=== PATIENT | female | born 1940 | race Caucasian/White ===

== ENCOUNTER 2021-11-12 14:36 | Inpatient (IN) | payer OTHER ==
[~2021-11-12] VITALS: Ht 170.2 cm; Wt 62.2 kg
[2021-11-12 15:55] LABS: BASOPHIL 0.1 % (0-2); EOSINOPHIL 1.3 % (0-7); HCT 32.5 % (37.0-47.0); LYMPHOCYTE 13.8 % (15-48); MCH 31.1 pg (25.0-31.0); MCHC 33.8 g/dL (32.0-36.0); MCV 91.8 fL (78.0-100.0); MONOCYTE 6.5 % (0-12); MPV 11.1 fL (6.0-9.5); NEUTROPHIL 77.9 % (41-80); NRBC 0; PLT 169 K/uL (150-400); RBC 3.54 M/uL (4.20-5.40); RDW 12.9 % (11.5-14.0); WBC 6.8 K/uL (4.0-10.5)
[2021-11-12 16:08] LABS: INR 1.1 (0.9-1.2); PROTHROMBIN TIME 13.6 SECONDS (11.8-13.4); PTT 27.5 SECONDS (24.4-34.7)
[2021-11-12 16:17] LABS: ALBUMIN 3.7 g/dL (3.4-5.0); BILIRUBIN - TOTAL 0.4 mg/dL (0.2-1.0); BUN/CREAT RATIO (CALC) 23.3 RATIO; CREATININE 1.2 mg/dL (0.51-0.95); GLOBULIN (CALCULATION) 2.7 g/dL; POTASSIUM 3.2 mmol/L (3.5-5.1); TOTAL PROTEIN 6.4 g/dL (6.4-8.2)
[2021-11-12 16:30] LABS: BILIRUBIN NEGATIVE (NEGATIVE); BLOOD TRACE-LYSED Ery/uL (NEGATIVE); CLARITY CLEAR (CLEAR); COLOR YELLOW (YELLOW); GLUCOSE (U) NORMAL (NORMAL); LEUKOCYTES NEGATIVE Leu/uL (NEGATIVE); NITRITE NEGATIVE (NEGATIVE); PROTEIN NEGATIVE (NEGATIVE); SPECIFIC GRAVITY <=1.005 (1.001-1.030); UROBILINOGEN 0.2 mg/dL (0.2-1.0)
[2021-11-12 16:40] LABS: URINARY RBC RARE
[2021-11-13 06:45] LABS: BASOPHIL 0.2 % (0-2); EOSINOPHIL 0.2 % (0-7); HCT 30.5 % (37.0-47.0); HGB 9.8 g/dl (12.5-16.0); LYMPHOCYTE 6.5 % (15-48); MCH 31.1 pg (25.0-31.0); MCHC 32.1 g/dL (32.0-36.0); MCV 96.8 fL (78.0-100.0); MPV 10.2 fL (6.0-9.5); NEUTROPHIL 84.6 % (41-80); NRBC 0; PLT 119 K/uL (150-400); RBC 3.15 M/uL (4.20-5.40); RDW 13.2 % (11.5-14.0)
[2021-11-13 06:57] LABS: BUN/CREAT RATIO (CALC) 19.2 RATIO; CREATININE 0.99 mg/dL (0.51-0.95); MAGNESIUM 1.9 mg/dL (1.8-2.4); POTASSIUM 4.5 mmol/L (3.5-5.1)
[2021-11-13] MEDS ORDERED: NORVASC5 MG PO (09:21)
[2021-11-13] MEDS ORDERED: ZOLOFT 25MG TAB25 MG PO (09:21)
[2021-11-13] MEDS ORDERED: MOBIC7.5 MG PO (09:22)
[2021-11-13] MEDS ORDERED: ZOCOR40 MG PO (09:23)
[2021-11-13] MEDS ORDERED: LASIX20 MG PO (09:23)
[2021-11-13] MEDS ORDERED: SINGULAIR10 MG PO (09:23)
[2021-11-13] MEDS ORDERED: XANAX0.5 MG PO (09:24)
[2021-11-14 06:46] LABS: BASOPHIL 0.1 % (0-2); EOSINOPHIL 0 % (0-7); HCT 19.4 % (37.0-47.0); LYMPHOCYTE 4.9 % (15-48); MCH 31.7 pg (25.0-31.0); NEUTROPHIL 88.6 % (41-80); NRBC 0; PLT 116 K/uL (150-400); RBC 2.02 M/uL (4.20-5.40); RDW 13.6 % (11.5-14.0); WBC 8.1 K/uL (4.0-10.5)
[2021-11-14 06:50] LABS: HGB 6.4 g/dl (12.5-16.0)
[2021-11-14 07:05] LABS: BUN/CREAT RATIO (CALC) 18.3 RATIO; CREATININE 1.15 mg/dL (0.51-0.95); POTASSIUM 4.1 mmol/L (3.5-5.1)
--- NOTE | 2021-11-14 21:47 | NUR ---
PT CONFUSED, HALLUCINATING, SPEAKING TO PEOPLE THAT ARENT IN THE ROOM. YELLING OUT FOR HELP. PT STATES IS IN A BASEMENT AND WE ARE NOT ALLOWING HER TO LEAVE REFUSES TO TAKE MEDICATIONS. STATES THIS NURSE IS HURTING HER. THIS NURSE ATTEMPTED TO REORIENT PT, PT INCREASINGLY RESTLESS AND AGITATED. PT CALLED NEIGHBOR ON PERSONAL CELL PHONE STATIING "HELP ME, THEY HAVE ME TRAPPED IN A BASEMENT, CALL 911". PT SON CALLED, SON STATES WILL COME SIT WITH PATIENT. SHELF FILLER NOTIFIED, ORDERS PLACED
[2021-11-15 07:41] LABS: BASOPHIL 0.2 % (0-2); EOSINOPHIL 0.1 % (0-7); HCT 27.1 % (37.0-47.0); LYMPHOCYTE 4.3 % (15-48); MCH 29.6 pg (25.0-31.0); MCHC 33.9 g/dL (32.0-36.0); MPV 10.3 fL (6.0-9.5); NEUTROPHIL 87.1 % (41-80); NRBC 0; PLT 127 K/uL (150-400); RBC 3.11 M/uL (4.20-5.40); RDW 18.1 % (11.5-14.0); WBC 9.8 K/uL (4.0-10.5)
[2021-11-15 07:47] LABS: HGB 9.2 g/dl (12.5-16.0); MCV 87.1 fL (78.0-100.0)
[2021-11-15 07:51] LABS: CREATININE 0.85 mg/dL (0.51-0.95); POTASSIUM 3.1 mmol/L (3.5-5.1)
--- NOTE | 2021-11-15 09:52 | NUR ---
LATE ENTRY FROM 11/14/21. SPOKE WITH PT SON, RUBY. HE WOULD LIKE TO HAVE HIS MOTHER GO TO [facility] FOR SHORT TERM REHAB. DUE TO PT GETTING BLOOD THERAPY HAS NOT SEEN THE PT. WHEN THE PT HGB IS STABLE THERAPY WILL COMPELETE THEIR EVAL. AND I CAN SEND THE REFERRAL TO [facility].
--- NOTE | 2021-11-15 16:34 | NUR ---
PT TALKING TO CORNER OF THE ROOM WITH NOBODY IN THE ROOM. STATING "YOU'RE JUST BAD THEY ARE" "THAT'S JUST WHAT THEY WANT YOU DO DO" "GET YOUR ASS OVER HERE AND HELP ME GET OUT OF HERE" "YOU ARE THE DUMBEST GRANDKID ANYONE COULD EVER HAVE" SHAKING BED RAIL AT TIMES. STATES SHE WANTS TO GET HER CANE AND GET TO BED AND READ HER BIBLE. RN PROVIDED A BIBLE AND REORIENTED THAT SHE IS IN HER BED. PT CONTINUES TO STATE HER BED IS ON THE OTHER SIDE OF THE ROOM
[2021-11-16 10:07] LABS: BASOPHIL 0.2 % (0-2); EOSINOPHIL 0.1 % (0-7); HCT 28.6 % (37.0-47.0); HGB 9.7 g/dl (12.5-16.0); LYMPHOCYTE 3.1 % (15-48); MCH 29.7 pg (25.0-31.0); MCHC 33.9 g/dL (32.0-36.0); MCV 87.5 fL (78.0-100.0); MONOCYTE 8.4 % (0-12); MPV 10.3 fL (6.0-9.5); NEUTROPHIL 87.7 % (41-80); NRBC 0; PLT 215 K/uL (150-400); RBC 3.27 M/uL (4.20-5.40); RDW 17.3 % (11.5-14.0); WBC 9.4 K/uL (4.0-10.5)
[2021-11-16 10:22] LABS: CREATININE 0.68 mg/dL (0.51-0.95); POTASSIUM 2.7 mmol/L (3.5-5.1)
--- NOTE | 2021-11-16 10:40 | NUR ---
PT/OT EVALS HAVE BEEN COMPLETED AND CLINICALS HAVE BEEN SENT TO [facility], PER REQUEST OF SON,
--- NOTE | 2021-11-16 14:26 | NUR ---
PT CONTINUES TO BE CONFUSED AND WITH HALULCINATING, REACHING FOR THINGS IN THE AIR. PT IN BED AT THIS TIME WITH BED ALARM ON. THIS NURSE IS SITTING IN ROOM DUE TO PATIENT THROWING LEGS OVER THE SIDE OF BED. BED ALARMS GOES OFF. PT GIVEN PERCOCET 5/325MG PO X 1 FOR PAIN AT 13:48 BUT PT STILL AGGITATED AND REACHING INTO THE AIR. ASKED [facility] IF WE COULD GET A SITTER FOR PATINET, NO STAFF MEMBER AVALIBLE WAS REPORTED. CONTINUE SITTING WITH PATIENT AT THIS TIME.
[2021-11-17 06:57] LABS: BASOPHIL 0.3 % (0-2); EOSINOPHIL 0.7 % (0-7); HGB 9.1 g/dl (12.5-16.0); LYMPHOCYTE 5.9 % (15-48); MCH 29.4 pg (25.0-31.0); MCHC 32.5 g/dL (32.0-36.0); MCV 90.3 fL (78.0-100.0); MONOCYTE 8.6 % (0-12); MPV 10.5 fL (6.0-9.5); NEUTROPHIL 84.4 % (41-80); NRBC 0; PLT 240 K/uL (150-400); RDW 17.6 % (11.5-14.0); WBC 7.7 K/uL (4.0-10.5)
[2021-11-17 07:23] LABS: BUN/CREAT RATIO (CALC) 29.9 RATIO; CREATININE 0.87 mg/dL (0.51-0.95); POTASSIUM 3.3 mmol/L (3.5-5.1)
[2021-11-18 07:00] LABS: BASOPHIL 0.3 % (0-2); EOSINOPHIL 1.2 % (0-7); HCT 28.3 % (37.0-47.0); HGB 8.9 g/dl (12.5-16.0); LYMPHOCYTE 9.9 % (15-48); MCHC 31.4 g/dL (32.0-36.0); MCV 92.2 fL (78.0-100.0); MONOCYTE 10.1 % (0-12); MPV 9.9 fL (6.0-9.5); NEUTROPHIL 77.8 % (41-80); NRBC 0; PLT 278 K/uL (150-400); RBC 3.07 M/uL (4.20-5.40); RDW 18.2 % (11.5-14.0); WBC 7.7 K/uL (4.0-10.5)
[2021-11-18 07:29] LABS: BUN/CREAT RATIO (CALC) 29.8 RATIO; CREATININE 0.94 mg/dL (0.51-0.95); MAGNESIUM 1.6 mg/dL (1.8-2.4); POTASSIUM 3.2 mmol/L (3.5-5.1)
[2021-11-19 07:26] LABS: BASOPHIL 0.4 % (0-2); HCT 27.7 % (37.0-47.0); LYMPHOCYTE 10.5 % (15-48); MCH 29.8 pg (25.0-31.0); MCHC 32.5 g/dL (32.0-36.0); MCV 91.7 fL (78.0-100.0); MONOCYTE 9.7 % (0-12); MPV 9.6 fL (6.0-9.5); NEUTROPHIL 76.9 % (41-80); NRBC 0; PLT 286 K/uL (150-400); RBC 3.02 M/uL (4.20-5.40); RDW 18.2 % (11.5-14.0); WBC 8.2 K/uL (4.0-10.5)
[2021-11-19 07:59] LABS: BUN/CREAT RATIO (CALC) 30.4 RATIO; CREATININE 0.79 mg/dL (0.51-0.95); MAGNESIUM 1.7 mg/dL (1.8-2.4); POTASSIUM 3.5 mmol/L (3.5-5.1)
[2021-11-20 05:59] LABS: BASOPHIL 0.2 % (0-2); EOSINOPHIL 2.4 % (0-7); HCT 30.8 % (37.0-47.0); LYMPHOCYTE 6.8 % (15-48); MCH 30.1 pg (25.0-31.0); MCHC 32.5 g/dL (32.0-36.0); MCV 92.8 fL (78.0-100.0); MONOCYTE 8.1 % (0-12); MPV 9.7 fL (6.0-9.5); NEUTROPHIL 82.1 % (41-80); NRBC 0; PLT 309 K/uL (150-400); RBC 3.32 M/uL (4.20-5.40); RDW 18.2 % (11.5-14.0); WBC 8.4 K/uL (4.0-10.5)
[2021-11-20 06:11] LABS: BUN/CREAT RATIO (CALC) 27.8 RATIO; CREATININE 0.79 mg/dL (0.51-0.95); MAGNESIUM 1.8 mg/dL (1.8-2.4); PHOSPHORUS 3.6 mg/dL (2.6-4.7); POTASSIUM 3.5 mmol/L (3.5-5.1)
[2021-11-20 15:39] LABS: BILIRUBIN NEGATIVE (NEGATIVE); BLOOD NEGATIVE Ery/uL (NEGATIVE); CLARITY CLEAR (CLEAR); COLOR YELLOW (YELLOW); GLUCOSE (U) NORMAL (NORMAL); LEUKOCYTES TRACE Leu/uL (NEGATIVE); NITRITE NEGATIVE (NEGATIVE); PROTEIN NEGATIVE (NEGATIVE); UROBILINOGEN 0.2 mg/dL (0.2-1.0)
[2021-11-20 15:50] LABS: YEAST PRESENT
--- NOTE | 2021-11-20 16:23 | NUR ---
PER ULICES AT [facility], SHE HAS MISPLACED THE REFERRAL AND TO REFAX TO [facility].
[2021-11-23 05:51] LABS: BASOPHIL 0.4 % (0-2); EOSINOPHIL 2.7 % (0-7); HGB 9.6 g/dl (12.5-16.0); LYMPHOCYTE 8.5 % (15-48); MCH 29.9 pg (25.0-31.0); MCV 93.5 fL (78.0-100.0); MONOCYTE 8.5 % (0-12); MPV 9.6 fL (6.0-9.5); NEUTROPHIL 79.3 % (41-80); NRBC 0; PLT 336 K/uL (150-400); RBC 3.21 M/uL (4.20-5.40); RDW 19.2 % (11.5-14.0); WBC 7.8 K/uL (4.0-10.5)
[2021-11-23 06:59] LABS: BUN/CREAT RATIO (CALC) 30.6 RATIO; CREATININE 0.72 mg/dL (0.51-0.95); POTASSIUM 4.1 mmol/L (3.5-5.1)
--- NOTE | 2021-11-23 13:04 | NUR ---
RECEIVED CALL FROM ULICES AT [facility]. PT. HAS BEEN APPROVED. SON NOTIFIED. NURSE, SAL AND DR. CAT NOTIFIED.
--- NOTE | 2021-11-23 13:05 | NUR ---
CALL REPORT TO [phone] FAX IS [phone]. ALSO SEND A SIGNED H & P THANKS, JEFFRY
[2021-11-23] MEDS ORDERED: XANAX0.5 MG PO (13:45)
[2021-11-23] MEDS ORDERED: PANTOPRAZOLE SO40 MG PO (13:45)
[2021-11-23] MEDS ORDERED: XARELTO10 MG PO (13:45)
[2021-11-23] MEDS ORDERED: SEROQUEL 25MG T25 MG PO (13:45)
== END 2021-11-23 15:45 | DRG 480 ==
LOC: FER 14:36 → FMS 15:52
PROVIDERS: Emergency Medicine; Internal Medicine; Legal Medicine; Nurse Practitioner Adult Health; ADMIT Internal Medicine
PROC: 0QS606Z Reposition Right Upper Femur with Intramedullary Internal Fixation Device, Open Approach (ICD-10-PCS; principal; 2021-11-13 11:30)
PROC: 30233N1 Transfusion of Nonautologous Red Blood Cells into Peripheral Vein, Percutaneous Approach (ICD-10-PCS; 2021-11-14)
PROC: B24BZZZ Ultrasonography of Heart with Aorta (ICD-10-PCS; 2021-11-17)
DX: S72.141A Displaced intertrochanteric fracture of right femur, initial encounter for closed fracture (principal); G92.9 Unspecified toxic encephalopathy; D62 Acute posthemorrhagic anemia; I97.191 Other postprocedural cardiac functional disturbances following other surgery; N17.9 Acute kidney failure, unspecified; W01.0XXA Fall on same level from slipping, tripping and stumbling without subsequent striking against object, initial encounter; I10 Essential (primary) hypertension; Z20.822 Contact with and (suspected) exposure to COVID-19; R44.1 Visual hallucinations; F41.9 Anxiety disorder, unspecified; I95.9 Hypotension, unspecified; R00.0 Tachycardia, unspecified; E87.6 Hypokalemia; R01.1 Cardiac murmur, unspecified; T41.45XA Adverse effect of unspecified anesthetic, initial encounter; T50.995A Adverse effect of other drugs, medicaments and biological substances, initial encounter; E86.0 Dehydration; M06.9 Rheumatoid arthritis, unspecified; G47.00 Insomnia, unspecified; Z98.890 Other specified postprocedural states
CPT/HCPCS: 36415; 36430; 70450; 71045; 72040; 73130; 73501; 73502; 76000; 80048; 80053; 81001; 83735; 84100; 85025; 85610; 85730; 86850; 86900; 86901; 86922; 93005; 94010; 94760; 94762; 96374; 97110; 97162; 97166; 97530; 97530-GP; 97535; C1713; J0696; J0697; J1100; J1630; J1885; J2060; J2270; J2405; J2704; J2795; J3010; J3475; J3480; J7030; J7120; P9016; U0002

== ENCOUNTER 2022-01-05 09:41 | Inpatient (IN) | payer OTHER ==
[~2022-01-05] VITALS: Ht 170.2 cm; Wt 52.2 kg
[~2022-01-05 09:41] MED LIST: LASIX20 MG PO; MOBIC7.5 MG PO; NORVASC5 MG PO; PANTOPRAZOLE SO40 MG PO; SEROQUEL 25MG T25 MG PO; SINGULAIR10 MG PO; XANAX0.5 MG PO; XARELTO10 MG PO; ZOCOR40 MG PO; ZOLOFT 25MG TAB25 MG PO
[2022-01-05 10:44] LABS: BASOPHIL 0.1 % (0-2); EOSINOPHIL 0.5 % (0-7); HCT 40.5 % (37.0-47.0); HGB 12.8 g/dl (12.5-16.0); MCH 30.7 pg (25.0-31.0); MCHC 31.6 g/dL (32.0-36.0); MCV 97.1 fL (78.0-100.0); MONOCYTE 3.7 % (0-12); MPV 9.9 fL (6.0-9.5); NRBC 0; PLT 261 K/uL (150-400); RBC 4.17 M/uL (4.20-5.40); WBC 8.4 K/uL (4.0-10.5)
[2022-01-05 10:46] LABS: NEUTROPHIL 91.5 % (41-80)
[2022-01-05 10:48] LABS: INR 1.1 (0.9-1.2); PROTHROMBIN TIME 13.6 SECONDS (11.8-13.4)
[2022-01-05 10:49] LABS: PTT 41.7 SECONDS (24.4-34.7)
[2022-01-05 11:00] LABS: BILIRUBIN NEGATIVE (NEGATIVE); BLOOD 1+ Ery/uL (NEGATIVE); CLARITY CLEAR (CLEAR); COLOR YELLOW (YELLOW); GLUCOSE (U) NORMAL (NORMAL); LEUKOCYTES NEGATIVE Leu/uL (NEGATIVE); NITRITE NEGATIVE (NEGATIVE); PROTEIN NEGATIVE (NEGATIVE); UROBILINOGEN 0.2 mg/dL (0.2-1.0)
[2022-01-05 11:06] LABS: ALBUMIN 3.7 g/dL (3.4-5.0); BILIRUBIN - TOTAL 0.6 mg/dL (0.2-1.0); BUN/CREAT RATIO (CALC) 15.9 RATIO; C-REACTIVE PROTEIN 13.1 mg/dL (<=0.90); CREATININE 0.69 mg/dL (0.51-0.95); GLOBULIN (CALCULATION) 4.8 g/dL; MAGNESIUM 1.7 mg/dL (1.8-2.4); POTASSIUM 4.1 mmol/L (3.5-5.1); TOTAL PROTEIN 8.5 g/dL (6.4-8.2)
[2022-01-05 11:09] LABS: D-DIMER 4.77 ug/mLFEU (0.00-0.41)
[2022-01-05 11:11] LABS: BACTERIA 1+
[2022-01-05 11:30] LABS: LACTIC ACID 1.1 mmol/L (0.4-1.9)
[2022-01-05 12:08] LABS: CORONAVIRUS 2019 SARS-COV-2 NEGATIVE (NEGATIVE); INFLUENZA A NAA NEGATIVE (NEGATIVE)
--- NOTE | 2022-01-05 16:30 | NUR ---
REPORT FROM RUSSELL SCHAFER IN ED. ARRIVED BY STRETCHER. ASSESSMENT DONE AND ORIENTED TO ROOM. PATIENT WAS HERE IN NOVEMBER FOR [facility]
[2022-01-05] MEDS ORDERED: AMLODIPINE BESYL5 MG PO (17:08)
[2022-01-05] MEDS ORDERED: ZOLOFT50 MG PO (17:08)
[2022-01-05] MEDS ORDERED: MELOXICAM15 MG PO (17:09)
[2022-01-05] MEDS ORDERED: SINGULAIR10 MG PO (17:09)
[2022-01-05] MEDS ORDERED: NORCO 5-325 TA1 EACH PO (17:10)
[2022-01-05] MEDS ORDERED: ZOCOR40 MG PO (17:11)
[2022-01-05] MEDS ORDERED: LASIX20 MG PO (17:11)
[2022-01-06 06:24] LABS: BASOPHIL 0.3 % (0-2); HCT 32.9 % (37.0-47.0); HGB 9.9 g/dl (12.5-16.0); LYMPHOCYTE 7.8 % (15-48); MCH 30.2 pg (25.0-31.0); MCHC 30.1 g/dL (32.0-36.0); MCV 100.3 fL (78.0-100.0); MONOCYTE 9.3 % (0-12); MPV 10.3 fL (6.0-9.5); NEUTROPHIL 81.3 % (41-80); NRBC 0; PLT 207 K/uL (150-400); RBC 3.28 M/uL (4.20-5.40); RDW 15.2 % (11.5-14.0)
--- NOTE | 2022-01-06 06:28 | NUR ---
0000 - PLACED PT ON 2L NC TO MAINTAIN O2 > 90% OVERNIGHT. PT WAS INTERMITTENTLY FALLING INTO THE HIGH 80'S AT TIMES WHILE ON ROOM AIR.
[2022-01-06 06:41] LABS: BUN/CREAT RATIO (CALC) 16.9 RATIO; C-REACTIVE PROTEIN 16.6 mg/dL (<=0.90); CREATININE 0.71 mg/dL (0.51-0.95)
[2022-01-06 14:19] LABS: BUN/CREAT RATIO (CALC) 15.7 RATIO; CREATININE 0.7 mg/dL (0.51-0.95); POTASSIUM 3.5 mmol/L (3.5-5.1)
[2022-01-07 06:16] LABS: BASOPHIL 0.5 % (0-2); EOSINOPHIL 0.3 % (0-7); HCT 36.3 % (37.0-47.0); HGB 11.2 g/dl (12.5-16.0); MCH 30.5 pg (25.0-31.0); MCHC 30.9 g/dL (32.0-36.0); MCV 98.9 fL (78.0-100.0); MPV 9.7 fL (6.0-9.5); NEUTROPHIL 89.2 % (41-80); NRBC 0; PLT 253 K/uL (150-400); RBC 3.67 M/uL (4.20-5.40); RDW 15.1 % (11.5-14.0)
[2022-01-07 07:07] LABS: BUN 15 mg/dL (7-18); BUN/CREAT RATIO (CALC) 21.1 RATIO; CHLORIDE 105 mmol/L (98-107); CO2 (BICARBONATE) 21 mmol/L (21-32); CREATININE 0.71 mg/dL (0.51-0.95); GLUCOSE 122 mg/dL (74-106); MAGNESIUM 1.8 mg/dL (1.8-2.4); POTASSIUM 4.1 mmol/L (3.5-5.1)
[2022-01-07 07:08] LABS: C-REACTIVE PROTEIN > 18.00 mg/dL (<=0.90)
[2022-01-08 05:53] LABS: BASOPHIL 0.7 % (0-2); EOSINOPHIL 0.1 % (0-7); HCT 39.7 % (37.0-47.0); HGB 12.3 g/dl (12.5-16.0); LYMPHOCYTE 1.5 % (15-48); MCH 30.1 pg (25.0-31.0); MCV 97.1 fL (78.0-100.0); MONOCYTE 2.7 % (0-12); MPV 10.5 fL (6.0-9.5); NEUTROPHIL 93.9 % (41-80); NRBC 0; PLT 251 K/uL (150-400); RBC 4.09 M/uL (4.20-5.40); RDW 15.2 % (11.5-14.0); WBC 9.6 K/uL (4.0-10.5)
--- NOTE | 2022-01-08 06:11 | NUR ---
1900 - PT'S HR INCREASED TO 150 (ST) & IMMEDIATELY RETURNED TO BASELINE 2310 - PT'S HR INCREASED TO 227 (ST) & IMMEDIATELY RETURNED TO BASELINE 101 - PT'S HR INCREASED TO 192 (ST) & IMMEDIATELY RETURNED TO BASELINE ALL 3 INCIDENTS WERE REPORTED TO NOLAN BAGLEY @ THE TIME OF THEIR OCCURENCE.
[2022-01-08 06:16] LABS: BUN/CREAT RATIO (CALC) 25.3 RATIO; CREATININE 0.95 mg/dL (0.51-0.95); MAGNESIUM 1.9 mg/dL (1.8-2.4); PHOSPHORUS 2.3 mg/dL (2.6-4.7)
[2022-01-08 06:21] LABS: POTASSIUM 2.6 mmol/L (3.5-5.1)
[2022-01-08 09:47] LABS: LACTIC ACID 3.7 mmol/L (0.4-1.9)
--- NOTE | 2022-01-08 15:11 | NUR ---
1100 PT WAS MOVED TO ICU BED 2, SHE WAS HAVING RESPTORY DISTRESS AND BP WAS 85/42, 1240 T/O CALLED AND DR BYNUM PLACED A CENTRAL LINE AND L RADIAL MÓNICA BP CONTINUED TO DROP,WAS PLACED ON A LEVOPHED GTT AT 2MCG ADVANCED UP TO 8MCG
--- NOTE | 2022-01-08 16:16 | NUR ---
01/08/22 Ms. Fabian is current with [facility] . [facility] was notified via fax of admission.
[2022-01-08 17:12] LABS: BUN/CREAT RATIO (CALC) 17.8 RATIO; CREATININE 1.69 mg/dL (0.51-0.95)
[2022-01-08 17:43] LABS: LACTIC ACID 4.4 mmol/L (0.4-1.9)
--- NOTE | 2022-01-08 18:20 | NUR ---
1718 PATIENT HAS NO HR, NO BLOOD PRESSURE AND NO RESPIRATIONS. SON WILL DECIDE AT A LATER TIME ABOUT A HOME.
--- NOTE | 2022-01-08 19:32 | NUR ---
1718 LEVOPHED TITATED TO DECREASING BLOOD PRESSURE UNTIL MAXED OUT AT 30 MCGS. LR BOLUS STARTED AT 1510. VASSOPRESSIN NEVER STARTED
--- NOTE | 2022-01-09 12:36 | NUR ---
01/09/22 [facility] was informed of patient's .
== END 2022-01-08 20:45 | disposition expired | DRG 871 ==
LOC: FER 09:41 → FTCU 14:19 → FICU 01-08 10:50
PROVIDERS: Emergency Medicine; ADMIT Family Medicine
PROC: 3E03329 Introduction of Other Anti-infective into Peripheral Vein, Percutaneous Approach (ICD-10-PCS; 2022-01-05)
PROC: 8E0ZXY6 Isolation (ICD-10-PCS; 2022-01-05)
PROC: 03HY32Z Insertion of Monitoring Device into Upper Artery, Percutaneous Approach (ICD-10-PCS; principal; 2022-01-08)
PROC: 4A133B1 Monitoring of Arterial Pressure, Peripheral, Percutaneous Approach (ICD-10-PCS; 2022-01-08)
PROC: 4A133J1 Monitoring of Arterial Pulse, Peripheral, Percutaneous Approach (ICD-10-PCS; 2022-01-08)
PROC: 02HV33Z Insertion of Infusion Device into Superior Vena Cava, Percutaneous Approach (ICD-10-PCS; 2022-01-08)
PROC: 3E033XZ Introduction of Vasopressor into Peripheral Vein, Percutaneous Approach (ICD-10-PCS; 2022-01-08)
PROC: 0T9B70Z Drainage of Bladder with Drainage Device, Via Natural or Artificial Opening (ICD-10-PCS; 2022-01-08)
DX: A41.9 Sepsis, unspecified organism (principal); I50.33 Acute on chronic diastolic (congestive) heart failure; R65.21 Severe sepsis with septic shock; J96.01 Acute respiratory failure with hypoxia; L03.116 Cellulitis of left lower limb; L03.115 Cellulitis of right lower limb; I13.0 Hypertensive heart and chronic kidney disease with heart failure and stage 1 through stage 4 chronic kidney disease, or unspecified chronic kidney disease; N17.9 Acute kidney failure, unspecified; M96.842 Postprocedural seroma of a musculoskeletal structure following a musculoskeletal system procedure; M96.840 Postprocedural hematoma of a musculoskeletal structure following a musculoskeletal system procedure; Z66 Do not resuscitate; Z20.822 Contact with and (suspected) exposure to COVID-19; Z28.310 Unvaccinated for COVID-19; R31.9 Hematuria, unspecified; E87.6 Hypokalemia; K80.20 Calculus of gallbladder without cholecystitis without obstruction; A08.4 Viral intestinal infection, unspecified; I87.2 Venous insufficiency (chronic) (peripheral); I70.203 Unspecified atherosclerosis of native arteries of extremities, bilateral legs; R00.1 Bradycardia, unspecified; E83.42 Hypomagnesemia; E86.0 Dehydration; N18.2 Chronic kidney disease, stage 2 (mild); I48.0 Paroxysmal atrial fibrillation; F41.9 Anxiety disorder, unspecified; F32.A Depression, unspecified; E78.5 Hyperlipidemia, unspecified; D53.9 Nutritional anemia, unspecified; I27.20 Pulmonary hypertension, unspecified; Z96.641 Presence of right artificial hip joint; Z85.820 Personal history of malignant melanoma of skin; Z79.899 Other long term (current) drug therapy; Z98.890 Other specified postprocedural states
CPT/HCPCS: 36415; 36600; 71045; 75635; 80048; 80053; 81001; 82607; 82803; 83605; 83735; 83880; 84100; 84145; 84443; 84484; 85025; 85379; 85610; 85730; 86140; 87040; 87088; 87449; 93005; 93970; 94010; 97166; 97530; J0690; J0692; J1170; J1650; J1940; J2405; J2543; J3370; J3475; J7030; J7040; J7050; J7120; Q9967; U0002